=== PATIENT | female | born 1995 | race Caucasian/White ===

== ENCOUNTER 2017-06-29 21:22 | Emergency (ER) | payer BC ==
[~2017-06-29] VITALS: Ht 170.2 cm; Wt 78.0 kg
[~2017-06-29 21:22] MED LIST: ALBU1AER9 INH; BCPILLS PO; FLUO40CA8 PO; FLUT0.0529 NAE; IRON1CAP2 PO; LAMO25TA PO; LORA10CA2 PO; MELA1TAB3 PO; MISCCAP80 PO; MONT1TAB3 PO; OMEP-105 PO; PRED10TA PO; SYMIN8045 INH; TRAZ50TA35 PO
[2017-06-29 21:26] VITALS: TEMP 36.9; Ht 170.2 cm; Wt 78.0 kg
[2017-06-29] MEDS ORDERED: KETOROLAC TROMETHAMINE 30 MG/ML VIAL IV STA (22:04)
--- NOTE | 2017-06-29 22:16 | EMERGENCY ROOM VISIT NOTE ---
History Report prepared by Robinson: Silvia Yousif Under the Supervision of: Olga Lidia ParisO. First contact with patient: 21:48 Chief Complaint: PELVIC PAIN Stated Complaint: PAIN IN LOWER RIGHT ABDOMEN, NAUSEA History of Present Illness The patient is a 21 year old female who presents to the Emergency Room with complaints of worsening pelvic pain that started last night. The patient rates her pain a 6/10 in severity. The patient states that she also started experiencing nausea and diarrhea today. She reports that she had 3 episodes of diarrhea today. She notes that she has celiac's disease so diarrhea is not uncommon. The patient states that she has a history of ovarian cysts. She states that her current symptoms feel similar to the symptoms she experienced during her previous ovarian cysts. She notes that she stopped taking her control pills a week ago because she ran out. The patient states that she has had no change in activity or diet. She denies any fever, chills, or urine discharge. Source of History: patient Onset: last night Position: pelvis Symptom Intensity: moderate Quality: sharp Timing: worsening Associated Symptoms: + nausea, + diarrhea, No fevers, No chills, No urinary symptoms Review of Systems Pt denies headache, change in vision, fevers, chest pain, shortness of breath, nausea, vomiting, diarrhea, pain with urination, and melena. Family History Cancer Diabetes mellitus Hypertension Kidney disease Kidney stones Lung disease Seizures Social History Smoking Status: Never Smoker Alcohol Use: none Drug Use: none Marital Status: single Housing Status: lives with roommate Occupation Status: employed, [employer] student Current/Historical Medications Scheduled Budesonide/Formoterol Fumarate (Symbicort 160/4.5 Inhaler ), 2 PUFFS INH BID Ethinyl Estradiol/Norethindr (Microgestin 1.5MG/30MG), 1 TAB PO DAILY Ferrous Sulfate (Iron), 325 MG PO DAILY Fluoxetine Hcl (Prozac), 60 MG PO DAILY Fluticasone Propionate (Nasal) (Flonase Allergy Relief), 2 SPRAYS YASMIN DAILY Lamotrigine (Lamictal), 100 MG PO BID Loratadine (Claritin), 10 MG PO BID Melatonin (Melatonin Maximum Strengt), 10 MG PO HS Montelukast Sodium (Singulair), 10 MG PO DAILY Quetiapine Fumarate (Seroquel), 300 MG PO DAILY Scheduled PRN Albuterol Hfa (Ventolin Hfa), 2 PUFFS INH Q6H PRN for SOB/Wheezing Prednisone Tab (Prednisone), 10 MG PO UD PRN for emergency Trazodone Hcl (Trazodone), 50-150 MG PO HS PRN for Sleep Allergies Coded Allergies: Clarithromycin (Verified Allergy, Unknown, RASH, 06/30/17) Erythromycin (Verified Allergy, Unknown, RASH, 06/30/17) Sulfisoxazole (Verified Allergy, Unknown, RASH, 06/30/17) Uncoded Allergies: SEAFOOD (Allergy, Intermediate, SWELLING, 10/12/14) DAIRY PRODUCTS (Adverse Reaction, Intermediate, GI UPSET, 10/12/14) Physical Exam Vital Signs Date Time Temp Pulse Resp B/P (MAP) Pulse Ox O2 Delivery O2 Flow Rate FiO2 06/30/17 00:26 75 16 133/80 98 Room Air 06/29/17 21:26 36.9 85 20 148/79 96 Room Air Physical Exam GENERAL: alert, well appearing, well nourished, no distress, non-toxic EYE EXAM: normal conjunctiva, PERRL and EOM's grossly intact OROPHARYNX: no exudate, no erythema, lips, buccal mucosa, and tongue normal and mucous membranes are moist NECK: supple, no nuchal rigidity, no adenopathy, non-tender LUNGS: Clear to auscultation. Normal chest wall mechanics HEART: no murmurs, S1 normal and S2 normal ABDOMEN: abdomen soft, non-tender, normo-active bowel sounds, no masses, no rebound or guarding. Right lower quadrant pain. BACK: Back is symmetrical on inspection and there is no deformity, no midline tenderness, no CVA tenderness. SKIN: no rashes and no bruising UPPER EXTREMITIES: upper extremities are grossly normal. LOWER EXTREMITIES: No pitting edema. NEURO EXAM: Normal sensorium, cranial nerves II-XII [grossly] intact, normal speech, no [gross] weakness of arms, no [gross] weakness of legs. [No drift. Finger to nose intact. Gross sensation intact.] Medical Decision & Procedures ER Provider Diagnostic Interpretation: Primary findings only - see final report for complete test findings. US PELVIC/ENDOVAG: Assuming a negative test. The uterus is unremarkable. No torsion. Presumed collapsed follicle in the right ovary. Small amount of fluid in the pelvis. Radiologist: Jud Burns M.D. Study ready at 23:55 and initial results transmitted at 00:09. Laboratory Results 06/29/17 21:30 Red Blood Count 4.75, Mean Corpuscular Volume 83.6, Mean Corpuscular Hemoglobin 28.0, Mean Corpuscular Hemoglobin Concent 33.5, Mean Platelet Volume 9.8, Neutrophils (%) (Auto) 54.2, Lymphocytes (%) (Auto) 39.4, Monocytes (%) (Auto) 6.1, Eosinophils (%) (Auto) 0.0, Basophils (%) (Auto) 0.0, Neutrophils # (Auto) 3.58, Lymphocytes # (Auto) 2.60, Monocytes # (Auto) 0.40, Eosinophils # (Auto) 0.00, Basophils # (Auto) 0.00 06/29/17 21:30 Test 06/29/17 21:25 06/29/17 21:30 Urine Color YELLOW Urine Appearance CLEAR (CLEAR) Urine pH 8.0 (4.5-7.5) Urine Specific [place] 1.005 (1.000-1.030) Urine Protein NEG (NEG) Urine Glucose (UA) NEG (NEG) Urine Ketones NEG (NEG) Urine Occult Blood 2+ (NEG) Urine Nitrite NEG (NEG) Urine Bilirubin NEG (NEG) Urine Urobilinogen NEG (NEG) Urine Leukocyte Esterase NEG (NEG) Urine WBC (Auto) 1-5 /hpf (0-5) Urine RBC (Auto) 0-4 /hpf (0-4) Urine Hyaline Casts (Auto) 0 /lpf (0-5) Urine Epithelial Cells (Auto) 5-10 /lpf (0-5) Urine Bacteria (Auto) NEG (NEG) White Blood Count 6.60 K/uL (4.8-10.8) Red Blood Count 4.75 M/uL (4.2-5.4) Hemoglobin 13.3 g/dL (12.0-16.0) Hematocrit 39.7 % (37-47) Mean Corpuscular Volume 83.6 fL (80-100) Mean Corpuscular Hemoglobin 28.0 pg (25-34) Mean Corpuscular Hemoglobin Concent 33.5 g/dl (32-36) Platelet Count 198 K/uL (130-400) Mean Platelet Volume 9.8 fL (7.4-10.4) Neutrophils (%) (Auto) 54.2 % Lymphocytes (%) (Auto) 39.4 % Monocytes (%) (Auto) 6.1 % Eosinophils (%) (Auto) 0.0 % Basophils (%) (Auto) 0.0 % Neutrophils # (Auto) 3.58 K/uL (1.4-6.5) Lymphocytes # (Auto) 2.60 K/uL (1.2-3.4) Monocytes # (Auto) 0.40 K/uL (0.11-0.59) Eosinophils # (Auto) 0.00 K/uL (0-0.5) Basophils # (Auto) 0.00 K/uL (0-0.2) RDW Standard Deviation 39.1 fL (36.4-46.3) RDW Coefficient of Variation 13.1 % (11.5-14.5) Immature Granulocyte % (Auto) 0.3 % Immature Granulocyte # (Auto) 0.02 K/uL (0.00-0.02) Anion Gap 6.0 mmol/L (3-11) Est Creatinine Clear Calc Drug Dose 87.9 ml/min Estimated GFR () 84.0 Estimated GFR (Non- 72.5 BUN/Creatinine Ratio 5.8 (10-20) Calcium Level 8.9 mg/dl (8.5-10.1) Total Bilirubin 0.4 mg/dl (0.2-1) Aspartate Amino Transf (AST/SGOT) 33 U/L (15-37) Alanine Aminotransferase (ALT/SGPT) 52 U/L (12-78) Alkaline Phosphatase 65 U/L (45-117) Total Protein 6.9 gm/dl (6.4-8.2) Albumin 4.1 gm/dl (3.4-5.0) Globulin 2.8 gm/dl (2.5-4.0) Albumin/Globulin Ratio 1.5 (0.9-2) Human Chorionic Gonadotropin, Qual NEG (NEG) Laboratory results per my review. Medications Administered Medications (Trade) Dose Ordered Sig/Dasia Route Start Time Stop Time Status Last Admin Dose Admin Ketorolac Tromethamine (Toradol Inj) 30 mg NOW STAT IV 06/29/17 22:04 06/29/17 22:06 DC 06/29/17 22:16 30 MG ED Course 2148: The patient was evaluated in room C12. A complete history and physical exam was performed. 0033: Upon reevaluation, the patient is resting comfortably. I discussed the findings and the treatment plan with the patient. She expresses complete and understanding. 0045: Upon reevaluation, the patient is feeling better. I discussed the findings and the treatment plan with the patient. She verbalizes agreement and understanding. She is ready to be discharged home. Medical Decision Differential diagnosis: Etiologies such as appendicitis, diverticulitis, PUD, biliary pathology, UTI, pancreatitis, obstruction, mesenteric ischemia, aortic pathology, infections, inflammatory bowel disease, renal colic, as well as others were entertained. Pt well appearing here throughout. Discussed f/u with pcp and fixture designer. Discussed sx to watch/return for, she verbalized understanding was agreeable with plan. Patient with no fevers, I feel likely nausea earlier secondary to pain response. At this point I feel patient low risk for evolving appendicitis. No evidence of torsion. Patient not sexually actually no history of STDs, no vaginal discharge otherwise suggest STDs/PID. Doubt colitis , bowel obstruction, perforation, mesenteric adenitis, IBD. Patient with no other GI symptoms. Doubt bacteremia/sepsis. Doubt occult GI bleed. Patient with no urinary symptoms, slight hematuria noted on UA although possible contaminant. No other symptoms to suggest UTI or kidney infection. Medication Reconcilliation Current Medication List: was personally reviewed by me Blood Pressure Screening Patient's blood pressure: Normal blood pressure Impression Primary Impression: Abdominal pain Additional Impression: Hematuria Scribe Attestation The scribe's documentation has been prepared under my direction and personally reviewed by me in its entirety. I confirm that the note above accurately reflects all work, treatment, procedures, and medical decision making performed by me. Departure Information Dispostion Home / Self-Care Referrals No Doctor, Assigned (PCP) Patient Instructions [facility] Additional Instructions Please continue to monitor the pain for any changes. You may use Tylenol and ibuprofen. Please drink plenty of fluids. Please avoid any strenuous activity , heavy lifting, or sexual intercourse until you're feeling better. If you have any persistent or worsening pain, develop fevers, vomiting, diarrhea, change in your urine, vaginal discharge or bleeding, or any other new concerns, please return the emergency room. Problem Qualifiers Primary Impression: Abdominal pain Abdominal location: right lower quadrant Qualified Codes: R10.31 - Right lower quadrant pain Additional Impression: Hematuria Hematuria type: unspecified type Qualified Codes: R31.9 - Hematuria, unspecified
[2017-06-29 22:20] LABS: URINE APPEARANCE CLEAR (CLEAR); URINE BILIRUBIN NEG (NEG); URINE COLOR YELLOW; URINE NITRITE NEG (NEG); URINE SPECIFIC GRAVITY 1.005 (1.000-1.030); UROBILINOGEN NEG (NEG); ZZUR CULT IF INDIC CLEAN CATCH NO
[2017-06-29 22:23] LABS: MANUAL MICROSCOPIC REQUIRED? NO; REVIEW REQ? NO
[2017-06-29 22:36] LABS: COMPLETE YES; HEMATOCRIT 39.7 % (37-47); IG% 0.3 %; LYMPH % 39.4 %; MEAN CELL VOLUME 83.6 fL (80-100); MEAN CORPUSCULAR HGB CONC 33.5 g/dl (32-36); MEAN PLATELET VOLUME 9.8 fL (7.4-10.4); MONO % 6.1 %; NEUT % 54.2 %; PLATELET COUNT 198 K/uL (130-400); RED BLOOD COUNT 4.75 M/uL (4.2-5.4)
[2017-06-29 22:47] LABS: PREG INTERNAL NEGATIVE QC NEG CLEAR BACKGROUND; PREG INTERNAL POSITIVE QC POS CONTROL LINE
[2017-06-29 22:52] LABS: BUN/CREATININE RATIO 5.8 (10-20); CALCIUM 8.9 mg/dl (8.5-10.1); CREATININE 1.09 mg/dl (0.60-1.20); POTASSIUM 3.9 mmol/L (3.5-5.1)
[2017-06-29 22:53] LABS: ALB/GLOB RATIO 1.5 (0.9-2)
[2017-06-30 00:26] VITALS: BP 133/80; PULSE 75; O2SAT 98
[2017-06-30] MEDS ORDERED: SYMIN160 INH (00:34)
[2017-06-30] MEDS ORDERED: QUET1TAB37 PO (00:34)
[2017-06-30] MEDS ORDERED: FLUO20CA34 PO (00:34)
[2017-06-30] MEDS ORDERED: MELATAB2 PO (00:34)
[2017-06-30] MEDS ORDERED: LAMO100T16 PO (00:34)
[2017-06-30] MEDS ORDERED: NORE-24 PO (00:36)
[2017-06-30] MEDS ORDERED: FERR1TAB23 PO (00:36)
[2017-06-30] MEDS ORDERED: VNTHFA/IN INH (00:36)
[2017-06-30] MEDS ORDERED: FLUT0.15 NAE (00:36)
--- NOTE | 2017-06-30 06:54 | DIAGNOSTIC IMAGING REPORT ---
EXAMINATION: PELVIC ULTRASOUND (transabdominal and endovaginal scanning) CLINICAL HISTORY: Right lower quadrant abdominal pain COMPARISON STUDY: None FINDINGS: The uterus measured 6.6 x 2.6 x 4 cm. The endometrial stripe measured 6 mm. The right ovary measured 42 x 20 x 17 mm. There is homogeneity within the right ovary likely represents a collapsed follicle. The left ovary measured 5 x 16 x 13 mm.. There is no ultrasonographic evidence of ovarian torsion. It should be noted that ovarian torsion can be present with normal Doppler ultrasonographic findings. There is trace free fluid, likely physiologic. IMPRESSION: No significant abnormalities. Electronically signed by: Ventura Guevara M.D. 06/30/2017 6:53 AM Dictated Date/Time: 06/30/2017 6:51 AM
== END 2017-06-30 00:59 | disposition home or self-care (01) ==
LOC: C.EDB 21:23 → C.EDC 06-30 00:59
DX: R10.31 Right lower quadrant pain (principal); R31.9 Hematuria, unspecified; R19.7 Diarrhea, unspecified; Z83.3 Family history of diabetes mellitus; Z82.49 Family history of ischemic heart disease and other diseases of the circulatory system; Z84.1 Family history of disorders of kidney and ureter; Z82.0 Family history of epilepsy and other diseases of the nervous system

== ENCOUNTER 2017-07-06 14:37 | Emergency (ER) | payer BC ==
[~2017-07-06] VITALS: Ht 170.2 cm; Wt 78.4 kg
[~2017-07-06 14:37] MED LIST changes: -ALBU1AER9 INH; -BCPILLS PO; +FERR1TAB23 PO; +FLUO20CA34 PO; -FLUO40CA8 PO; -FLUT0.0529 NAE; +FLUT0.15 NAE; -IRON1CAP2 PO; +LAMO100T16 PO; -LAMO25TA PO; -MELA1TAB3 PO; +MELATAB2 PO; -MISCCAP80 PO; +NORE-24 PO; -OMEP-105 PO; +QUET1TAB37 PO; +SYMIN160 INH; -SYMIN8045 INH; +VNTHFA/IN INH
[2017-07-06 14:51] VITALS: TEMP 37.2; Ht 170.2 cm; Wt 78.4 kg
[2017-07-06 16:06] LABS: COMPLETE YES; HEMATOCRIT 39.7 % (37-47); LYMPH % 38.7 %; LYMPH ABS # 1.84 K/uL (1.2-3.4); MEAN CELL VOLUME 83.8 fL (80-100); MEAN CORPUSCULAR HEMOGLOBIN 27.8 pg (25-34); MEAN CORPUSCULAR HGB CONC 33.2 g/dl (32-36); MEAN PLATELET VOLUME 9.3 fL (7.4-10.4); MONO % 5.3 %; PLATELET COUNT 158 K/uL (130-400); RED BLOOD COUNT 4.74 M/uL (4.2-5.4); WHITE BLOOD COUNT 4.76 K/uL (4.8-10.8)
[2017-07-06 16:28] LABS: BUN/CREATININE RATIO 9.5 (10-20); CALCIUM 9.1 mg/dl (8.5-10.1); CREATININE 1.11 mg/dl (0.60-1.20); POTASSIUM 4.1 mmol/L (3.5-5.1)
[2017-07-06 16:32] LABS: URINE APPEARANCE CLEAR (CLEAR); URINE BILIRUBIN NEG (NEG); URINE COLOR YELLOW; URINE EPITHELIAL CELL AUTO >30 /lpf (0-5); URINE NITRITE NEG (NEG); URINE SPECIFIC GRAVITY 1.011 (1.000-1.030); UROBILINOGEN NEG (NEG)
[2017-07-06 16:39] LABS: ALB/GLOB RATIO 1.2 (0.9-2); THYROID STIMULATING HORMONE 1.29 uIu/ml (0.300-4.500)
[2017-07-06 16:43] LABS: MANUAL MICROSCOPIC REQUIRED? NO; REVIEW REQ? NO
--- NOTE | 2017-07-06 16:49 | DIAGNOSTIC IMAGING REPORT ---
ULTRASOUND OF THE PELVIS CLINICAL HISTORY: Right pelvic pain. COMPARISON STUDY: Pelvic ultrasound dated 06/29/2017. TECHNIQUE: Real-time, grayscale, and color flow sonography of the pelvis is performed both transabdominally and endovaginally. Images are reviewed in the transverse and longitudinal planes. FINDINGS: Uterus: The uterus is normal in size and echotexture, measuring 7.1 x 2.7 x 3.7 cm. Endometrium: The endometrium is normal in appearance, and the endometrial stripe is normal in thickness measuring up to 0.5 cm. Ovaries: The ovaries are normal in size and morphology. The right ovary measures 4.1 x 2.6 x 3.0 cm and the left ovary measures 3.0 x 2.5 x 2.5 cm. Numerous small follicles are seen bilaterally. Normal Doppler waveforms are shown within both ovaries. Pelvis: There is trace free fluid in the cul-de-sac. No concerning adnexal lesion is seen. IMPRESSION: 1. No acute sonographic abnormality is identified in the pelvis. 2. There is trace and likely physiologic free fluid in the cul-de-sac. Electronically signed by: Obie Miller M.D. 07/06/2017 4:48 PM Dictated Date/Time: 07/06/2017 4:44 PM
--- NOTE | 2017-07-06 17:45 | DIAGNOSTIC IMAGING REPORT ---
CT SCAN OF THE ABDOMEN AND PELVIS WITHOUT CONTRAST CLINICAL HISTORY: RIGHT FLANK PAIN, HEMATURIA COMPARISON STUDY: No previous studies for comparison. TECHNIQUE: CT scan of the abdomen and pelvis was performed from the lung bases to the proximal femurs. Images are reviewed in the axial, sagittal, and coronal planes. IV contrast was not administered for this examination. A dose lowering technique was utilized adhering to the principles of ALARA. CT DOSE: 912.24 mGy.cm FINDINGS: Lower chest: The heart is normal in size and configuration, without pericardial effusion. The lung bases and pleural spaces are clear. Liver: The unenhanced liver is normal in size, contour, and attenuation. There is no intrahepatic biliary ductal dilatation. Gallbladder: Unremarkable. Spleen: Normal in size and attenuation. Pancreas: Unremarkable. Adrenal glands: Unremarkable. Kidneys: No renal, ureteral, or bladder calculi are visualized. Bowel: There are no transition zones indicate bowel obstruction. There is mild fecal retention. There is no acute diverticulitis. There is a low-lying cecum. The appendix appears normal. Peritoneum: Is no free air. There is trace free pelvic fluid likely physiologic Vasculature: The abdominal aorta is normal in course and caliber. Adenopathy: None. Pelvic viscera: The bladder, and pelvic viscera are unremarkable. Skeletal structures: No destructive osseous lesions are seen. IMPRESSION: 1. No evidence of bowel obstruction. No evidence of free air 2. No renal, ureteral, or bladder calculi identified 3. Normal appendix. No evidence of acute diverticulitis 4. Mild fecal retention Electronically signed by: Ventura Guevara M.D. 07/06/2017 5:43 PM Dictated Date/Time: 07/06/2017 5:39 PM
--- NOTE | 2017-07-06 18:20 | EMERGENCY ROOM VISIT NOTE ---
History First contact with patient: 15:13 Chief Complaint: PELVIC PAIN Stated Complaint: RIGHT PELVIC PAIN, BACK PAIN History of Present Illness Patient is a 21-year-old white female who returns to the emergency department for ongoing right lower quadrant pain 1 week. Patient has a history of celiac disease, GERD, IBS, and ovarian cysts. She also has a history of dysmenorrhea, for which she had been on an oral contraceptive. She finished her last pack about 2-1/2 weeks ago, and is not scheduled to see her tissue recovery technician until she goes home over , therefore has not gone back on the oral contraceptive pill. Patient reports her last menstrual period was about 2 and half weeks ago. Patient has a remote history of ovarian cyst. She developed some right lower quadrant pain last Thursday, for which she was seen and evaluated here in the emergency department. Ultrasound showed a collapsing follicle on the right ovary. Patient states that the pain resolved on its own over the next couple of days, and she was pain-free until about 2 or 3 days ago. She again notes a "pulling pain" in the right lower quadrant that she rates a 4/10. She is also noticed some increased vaginal discharge, which she states is not foul-smelling. She tried taking ibuprofen through the weekend. She has also noted some right low back pain which she feels is musculoskeletal in nature as she has been sitting a lot studying. She reports no urinary symptoms, no changes in her bowel habits. She reports that she has been compliant with her normal dietary restrictions, and states this is not consistent with her celiac disease. She denies any bloating, nausea or vomiting. She called [facility] and they sent her to the emergency department for evaluation. She was last sexually active about 4 months ago. She reports that she and her boyfriend were in a monogamous relationship, and use condoms, and she is felt to be low risk for any sexually transmitted infections. Review of Systems Review of systems as per HPI. All other systems reviewed were negative. 10 systems reviewed. Past Medical/Surgical History Medical Problems: (1) Abdominal pain (2) Anxiety (3) Asthma (4) Bipolar disorder (5) Celiac disease (6) Chest pain (7) Depression (8) GERD (gastroesophageal reflux disease) (9) Headache (10) Hematuria (11) Irritable Bowel Syndrome (12) Radha (13) Ovarian cyst Electronic medical records are reviewed and summarized as above/below. See Problem List. Family History Cancer Diabetes mellitus Hypertension Kidney disease Kidney stones Lung disease Seizures Social History Smoking Status: Never Smoker Alcohol Use: none Drug Use: none Marital Status: single Housing Status: lives with roommate Occupation Status: employed, [employer] student Current/Historical Medications Scheduled Budesonide/Formoterol Fumarate (Symbicort 160/4.5 Inhaler ), 2 PUFFS INH BID Ethinyl Estradiol/Norethindr (Microgestin 1.5MG/30MG), 1 TAB PO DAILY Ferrous Sulfate (Iron), 325 MG PO DAILY Fluoxetine Hcl (Prozac), 60 MG PO DAILY Fluticasone Propionate (Nasal) (Flonase Allergy Relief), 2 SPRAYS YASMIN DAILY Lamotrigine (Lamictal), 100 MG PO BID Loratadine (Claritin), 10 MG PO BID Melatonin (Melatonin Maximum Strengt), 10 MG PO HS Montelukast Sodium (Singulair), 10 MG PO DAILY Quetiapine Fumarate (Seroquel), 300 MG PO DAILY Scheduled PRN Albuterol Hfa (Ventolin Hfa), 2 PUFFS INH Q6H PRN for SOB/Wheezing Prednisone Tab (Prednisone), 10 MG PO UD PRN for emergency Trazodone Hcl (Trazodone), 50-150 MG PO HS PRN for Sleep Physical Exam Vital Signs Date Time Temp Pulse Resp B/P (MAP) Pulse Ox O2 Delivery O2 Flow Rate FiO2 07/06/17 18:45 77 16 130/71 97 Room Air 07/06/17 16:52 80 18 122/77 98 Room Air 07/06/17 14:51 37.2 86 20 131/84 98 Room Air Physical Exam CONSTITUTIONAL: Patient is a well-appearing 21-year-old white female who is awake and alert and in no acute distress. EYES: Pupils equal, round, reactive to light and accommodation. EOMs intact without nystagmus. Sclera are anicteric. ENT: Tympanic membranes intact, with normal landmarks. External canals are clear. Oral and nasopharynx are clear. Mucous membranes are moist, no lesions , tongue and gums appear normal. NECK: No bruits auscultated. Supple without lymphadenopathy. No thyromegaly. No meningeal signs. Full active range of motion without discomfort. CARDIOVASCULAR: Regular rate and rhythm, with normal S1 and S2, no murmur or gallop or rub is heard. No carotid bruits auscultated. No JVD. Peripheral pulses easily palpable. RESPIRATORY: Breath sounds equal and clear to auscultation without wheezes, rales, or rhonchi heard. Full and equal chest expansion without accessory muscle use or retractions. ABDOMEN: Bowel sounds are present. Abdomen is soft, nondistended, abdomen is mildly tender to palpation throughout, in the right and left upper and lower quadrants, and in the epigastric region. There is no guarding, rebound or rigidity. Pelvic Exam: Genitalia are normal Vagina is clean Cervix is without lesions, no cervical motion tenderness noted. The uterus is small, nontender The adnexa no masses, nontender INTEGUMENTARY: No lesions or rash, normal skin turgor. She has several abdominal piercings, no signs of infection are noted. LYMPH: No lymphadenopathy. Medical Decision & Procedures ER Provider Diagnostic Interpretation: ULTRASOUND OF THE PELVIS CLINICAL HISTORY: Right pelvic pain. COMPARISON STUDY: Pelvic ultrasound dated 06/29/2017. TECHNIQUE: Real-time, grayscale, and color flow sonography of the pelvis is performed both transabdominally and endovaginally. Images are reviewed in the transverse and longitudinal planes. FINDINGS: Uterus: The uterus is normal in size and echotexture, measuring 7.1 x 2.7 x 3.7 cm. Endometrium: The endometrium is normal in appearance, and the endometrial stripe is normal in thickness measuring up to 0.5 cm. Ovaries: The ovaries are normal in size and morphology. The right ovary measures 4.1 x 2.6 x 3.0 cm and the left ovary measures 3.0 x 2.5 x 2.5 cm. Numerous small follicles are seen bilaterally. Normal Doppler waveforms are shown within both ovaries. Pelvis: There is trace free fluid in the cul-de-sac. No concerning adnexal lesion is seen. IMPRESSION: 1. No acute sonographic abnormality is identified in the pelvis. 2. There is trace and likely physiologic free fluid in the cul-de-sac. CT SCAN OF THE ABDOMEN AND PELVIS WITHOUT CONTRAST CLINICAL HISTORY: RIGHT FLANK PAIN, HEMATURIA COMPARISON STUDY: No previous studies for comparison. TECHNIQUE: CT scan of the abdomen and pelvis was performed from the lung bases to the proximal femurs. Images are reviewed in the axial, sagittal, and coronal planes. IV contrast was not administered for this examination. A dose lowering technique was utilized adhering to the principles of ALARA. CT DOSE: 912.24 mGy.cm FINDINGS: Lower chest: The heart is normal in size and configuration, without pericardial effusion. The lung bases and pleural spaces are clear. Liver: The unenhanced liver is normal in size, contour, and attenuation. There is no intrahepatic biliary ductal dilatation. Gallbladder: Unremarkable. Spleen: Normal in size and attenuation. Pancreas: Unremarkable. Adrenal glands: Unremarkable. Kidneys: No renal, ureteral, or bladder calculi are visualized. Bowel: There are no transition zones indicate bowel obstruction. There is mild fecal retention. There is no acute diverticulitis. There is a low-lying cecum. The appendix appears normal. Peritoneum: Is no free air. There is trace free pelvic fluid likely physiologic Vasculature: The abdominal aorta is normal in course and caliber. Adenopathy: None. Pelvic viscera: The bladder, and pelvic viscera are unremarkable. Skeletal structures: No destructive osseous lesions are seen. IMPRESSION: 1. No evidence of bowel obstruction. No evidence of free air 2. No renal, ureteral, or bladder calculi identified 3. Normal appendix. No evidence of acute diverticulitis 4. Mild fecal retention Laboratory Results 07/06/17 15:48 Red Blood Count 4.74, Mean Corpuscular Volume 83.8, Mean Corpuscular Hemoglobin 27.8, Mean Corpuscular Hemoglobin Concent 33.2, Mean Platelet Volume 9.3, Neutrophils (%) (Auto) 56.0, Lymphocytes (%) (Auto) 38.7, Monocytes (%) (Auto) 5.3, Eosinophils (%) (Auto) 0.0, Basophils (%) (Auto) 0.0, Neutrophils # (Auto) 2.67, Lymphocytes # (Auto) 1.84, Monocytes # (Auto) 0.25, Eosinophils # (Auto) 0.00, Basophils # (Auto) 0.00 07/06/17 15:48 Test 07/06/17 15:48 07/06/17 18:15 White Blood Count 4.76 K/uL (4.8-10.8) Red Blood Count 4.74 M/uL (4.2-5.4) Hemoglobin 13.2 g/dL (12.0-16.0) Hematocrit 39.7 % (37-47) Mean Corpuscular Volume 83.8 fL (80-100) Mean Corpuscular Hemoglobin 27.8 pg (25-34) Mean Corpuscular Hemoglobin Concent 33.2 g/dl (32-36) Platelet Count 158 K/uL (130-400) Mean Platelet Volume 9.3 fL (7.4-10.4) Neutrophils (%) (Auto) 56.0 % Lymphocytes (%) (Auto) 38.7 % Monocytes (%) (Auto) 5.3 % Eosinophils (%) (Auto) 0.0 % Basophils (%) (Auto) 0.0 % Neutrophils # (Auto) 2.67 K/uL (1.4-6.5) Lymphocytes # (Auto) 1.84 K/uL (1.2-3.4) Monocytes # (Auto) 0.25 K/uL (0.11-0.59) Eosinophils # (Auto) 0.00 K/uL (0-0.5) Basophils # (Auto) 0.00 K/uL (0-0.2) RDW Standard Deviation 40.2 fL (36.4-46.3) RDW Coefficient of Variation 13.3 % (11.5-14.5) Immature Granulocyte % (Auto) 0.0 % Immature Granulocyte # (Auto) 0.00 K/uL (0.00-0.02) Urine Color YELLOW Urine Appearance CLEAR (CLEAR) Urine pH 8.0 (4.5-7.5) Urine Specific [place] 1.011 (1.000-1.030) Urine Protein NEG (NEG) Urine Glucose (UA) NEG (NEG) Urine Ketones NEG (NEG) Urine Occult Blood TRACE (NEG) Urine Nitrite NEG (NEG) Urine Bilirubin NEG (NEG) Urine Urobilinogen NEG (NEG) Urine Leukocyte Esterase TRACE (NEG) Urine WBC (Auto) 1-5 /hpf (0-5) Urine RBC (Auto) 0-4 /hpf (0-4) Urine Hyaline Casts (Auto) 0 /lpf (0-5) Urine Epithelial Cells (Auto) >30 /lpf (0-5) Urine Bacteria (Auto) NEG (NEG) Urine Test NEG (NEG) Anion Gap 7.0 mmol/L (3-11) Est Creatinine Clear Calc Drug Dose 86.5 ml/min Estimated GFR () 82.2 Estimated GFR (Non- 70.9 BUN/Creatinine Ratio 9.5 (10-20) Calcium Level 9.1 mg/dl (8.5-10.1) Total Bilirubin 0.3 mg/dl (0.2-1) Aspartate Amino Transf (AST/SGOT) 31 U/L (15-37) Alanine Aminotransferase (ALT/SGPT) 47 U/L (12-78) Alkaline Phosphatase 55 U/L (45-117) Total Protein 7.0 gm/dl (6.4-8.2) Albumin 3.8 gm/dl (3.4-5.0) Globulin 3.2 gm/dl (2.5-4.0) Albumin/Globulin Ratio 1.2 (0.9-2) Lipase 223 U/L (73-393) Thyroid Stimulating Hormone (TSH) 1.290 uIu/ml (0.300-4.500) Date/Time Source Procedure Growth Status 07/06/17 18:15 Vaginal Swab Trichomonas Preparation - Final Complete ED Course The patient was seen and evaluated as above. Her old records were reviewed, specifically her ED visit from one week ago. IV lock was initiated and repeat laboratory studies were collected today including CBC with differential, CMP, lipase, TSH and urinalysis. Repeat pelvic ultrasound was performed. Laboratory studies noted a normal white count and H&H. Electrolytes, renal functions, liver functions, lipase and TSH are all within normal limits. Urine test was negative. Urine not concerning for infection, hematuria again noted. Pelvic exam was performed, or Trichomonas was negative. Gram stain did not demonstrate any clue cells. Culture and probe for Chlamydia and gonorrhea are pending. Repeat pelvic ultrasound today was unremarkable. Uterus was normal. Endometrial lining was of normal thickness. Ovaries are normal in size and morphology with numerous follicles bilaterally. Normal Doppler waveforms. The patient was reassessed. Further workup was discussed with her, as she has now begun to experience some right-sided back pain and has had a fissure area on urinalysis 2. CT scan of the abdomen and pelvis without contrast was ordered, which did not show any evidence for bowel obstruction, free air, renal ureteral or bladder calculi. The appendix was visualized and was normal. Mild fecal retention was noted. All laboratory and diagnostic imaging studies were reviewed with the patient. Conservative care measures were discussed. Differential diagnoses entertained included ovarian cyst, ovarian torsion, UTI, pyelonephritis, renal colic, appendicitis, PID, tubo-ovarian abscess, endometriosis, among others. The patient was discharged home in good condition. She was encouraged to follow-up with her tissue recovery technician as she has scheduled. She was welcome to return to the emergency department at any point if her symptoms are worsening. Medical Decision See Emergency Department course. Medication Reconcilliation Current Medication List: was personally reviewed by me Blood Pressure Screening Patient's blood pressure: Normal blood pressure Blood pressure disposition: Did not require urgent referral Impression Primary Impression: Right lower quadrant abdominal pain Departure Information Referrals No Doctor, Assigned (PCP) Patient Instructions My [facility] Go Try It On Additional Instructions Ibuprofen(Motrin, Advil) may be used for fever or pain. Use 600mg every six hours as needed. Take with food. Avoid using more than 2400mg in a 24 hour period. Do not use 2400mg per day for more than three consecutive days without physician direction. Prolonged inappropriate use can lead to stomach upset or ulcers. This is available over the counter and typically comes in 200mg tablets. (AND/OR) Acetaminophen(Tylenol) may be used for fever or pain. Use 1000mg every eight hours as needed. Avoid using more than 3000mg in a 24 hour period. This is available over the counter. Rest and drink plenty of fluids as tolerated. Slow sips of water or sports drinks are recommended instead of large amounts all at once. Continue current medications. Once your stomach is settled start with a clear liquid diet (jello, soup broth, etc.) and then advance as tolerated. You should avoid full, heavy meals for about 24 hrs from the time your symptoms resolved. Return to the ER immediately for worsening or persistent abdominal pain, vomiting, fevers, chest pains, difficulty breathing, black or bloody stools, worsening of your condition, or as needed. Follow up with your primary physician in 1-2 days for a recheck of your current condition. Follow-up with your tissue recovery technician as you have scheduled.
[2017-07-06 18:45] VITALS: BP 130/71; PULSE 77; O2SAT 97
[2017-07-09 01:47] LABS: CHLAMYDIA TRACH RNA*** NOT DETECTED (NOT DETECTED); GC (NEIS GONORRHOEAE)RNA** NOT DETECTED (NOT DETECTED)
--- NOTE | 2017-07-09 17:04 | Pharmacy Progress Note ---
ED Pharmacist Culture FollowUp Date of Service: Jul 09, 2017. Patient growing MSSA from genital culture not discharged on antibiotics. Discussed with Dr. Canseco and can call in an RX for cephalexin 500mg QID X 7 days once patient has been reached. Left voicemail for patient to call back.
== END 2017-07-06 19:00 | disposition home or self-care (01) ==
LOC: C.EDB 14:39 → C.EDA 19:00
DX: R10.31 Right lower quadrant pain (principal); M54.9 Dorsalgia, unspecified; F31.9 Bipolar disorder, unspecified; F41.9 Anxiety disorder, unspecified; K21.9 Gastro-esophageal reflux disease without esophagitis; K58.9 Irritable bowel syndrome, unspecified; J45.909 Unspecified asthma, uncomplicated; N83.209 Unspecified ovarian cyst, unspecified side; Z79.899 Other long term (current) drug therapy; Z80.9 Family history of malignant neoplasm, unspecified; Z83.3 Family history of diabetes mellitus; Z82.49 Family history of ischemic heart disease and other diseases of the circulatory system; Z84.1 Family history of disorders of kidney and ureter; Z82.0 Family history of epilepsy and other diseases of the nervous system

== ENCOUNTER 2017-11-22 22:45 | Emergency (ER) | payer BC ==
[~2017-11-22] VITALS: Ht 170.2 cm; Wt 77.2 kg
[~2017-11-22 22:45] MED LIST changes: +NORE-104 PO; -NORE-24 PO
[2017-11-22 22:50] VITALS: Ht 170.2 cm; Wt 77.2 kg
[2017-11-22] MEDS ORDERED: ALBUT/IPRATROP 3MG/0.5MG NEB 3 ML VIAL INH STA (23:04)
[2017-11-22] MEDS ORDERED: KETOROLAC TROMETHAMINE 30 MG/ML VIAL IV STA (23:04)
[2017-11-22] MEDS ORDERED: METHYLPREDNISOLONE 125 MG VIAL IV STA (23:04)
[2017-11-22] MEDS ORDERED: SODIUM CHLORIDE 0.9% 1000ML 1,000 ML IV STA (23:04)
[2017-11-22] MEDS ORDERED: ACETAMINOPHEN 500 MG TAB PO STA (23:04)
[2017-11-22] MEDS ORDERED: BENZONATATE 100MG CAP PO ONE (23:15)
[2017-11-22 23:33] LABS: HEMOGLOBIN 13.7 g/dL (12.0-16.0); LYMPH % 16.1 %; LYMPH ABS # 0.54 K/uL (1.2-3.4); MEAN CELL VOLUME 84.7 fL (80-100); MEAN CORPUSCULAR HGB CONC 34.3 g/dl (32-36); MEAN PLATELET VOLUME 10.1 fL (7.4-10.4); MONO % 10.7 %; MONO ABS # 0.36 K/uL (0.11-0.59); NEUT % 73.2 %; NEUT ABS # 2.46 K/uL (1.4-6.5); PLATELET COUNT 115 K/uL (130-400); RED CELL DISTRIBUTION WIDTH CV 13.2 % (11.5-14.5); RED CELL DISTRIBUTION WIDTH SD 40.9 fL (36.4-46.3); WHITE BLOOD COUNT 3.36 K/uL (4.8-10.8)
[2017-11-22] MEDS ORDERED: ETON1IMP2 (23:40)
[2017-11-22 23:50] LABS: INFLUENZA B ANTIGEN Neg for Influ B (NEG)
[2017-11-22 23:57] LABS: CALCIUM 8.5 mg/dl (8.5-10.1); CREATININE 1.14 mg/dl (0.60-1.20); POTASSIUM 3.6 mmol/L (3.5-5.1)
[2017-11-23 00:33] VITALS: BP 109/86
[2017-11-23] MEDS ORDERED: OSELTAMIVIR PHOSPHATE 75 MG CAP PO STA (00:37)
[2017-11-23] MEDS ORDERED: OSEL75CA12 PO (00:43)
[2017-11-23] MEDS ORDERED: PRED20TA2 PO (00:43)
[2017-11-23] MEDS ORDERED: BENZ100C18 PO (00:43)
[2017-11-23] MEDS ORDERED: BENZONATATE 100MG CAP PO ONE (00:45)
[2017-11-23] MEDS ORDERED: EMPTY 8 DRAM VIAL ONE (00:45)
[2017-11-23 00:54] VITALS: PULSE 98; TEMP 36.7; O2SAT 96
--- NOTE | 2017-11-23 07:05 | DIAGNOSTIC IMAGING REPORT ---
TWO VIEW CHEST CLINICAL HISTORY: Dyspnea. FINDINGS: PA and lateral chest radiographs are compared to study dated 10/04/2014. The cardiomediastinal silhouette is unremarkable. The lungs and pleural spaces are clear. There is no pneumothorax. The bony thorax appears intact. IMPRESSION: No active disease in the chest. Electronically signed by: Obie Miller M.D. 11/23/2017 7:03 AM Dictated Date/Time: 11/23/2017 7:03 AM
--- NOTE | 2017-11-24 02:54 | EMERGENCY ROOM VISIT NOTE ---
ED Visit Note First contact with patient: 22:54 Chief Complaint: Body aches, cough, lightheadedness and sinus drainage. History of Present Illness: Ms. Da Silva is a 21-year-old white female who ambulates into the ED with multiple upper respiratory tract symptoms complaints. Historically patient reports she has a history of asthma. Patient reports her current symptoms started approximately 2-3 days ago while she was at home. She reports her symptoms started with a nonproductive cough and she has gradually had increasing nasal congestion and drainage, bifrontal headache, joint pains, body aches, chills and fevers. Currently she reports her cough has been nonproductive. Deep inspiration exacerbates her cough. She has not identified any alleviating factors related to the cough. She has been using her albuterol inhaler without relief of her cough. Associated with her cough she reports she is having a tightness sensation in the anterior chest. This discomfort worsens with cough. Currently she describes her headache as a pressure sensation. She rates her discomfort 5/10. Her pain is nonradiating. Her pain worsens with palpation of the frontal sinuses and cough. She has not identified any alleviating factors related to her discomfort. This is not the worst headache of her life. Additionally associated with her symptoms she reports she has been having fevers , chills and diffuse joint and body aches and lightheadedness. She has been taken acetaminophen and [id number] pseudoephedrine for her symptoms without relief. She denies skin eruptions, skin color changes, visual changes, hearing changes, difficulty speaking, difficulty swallowing, hemoptysis, palpitations, orthopnea , dependent edema, previous clots, claudication, cramping, recent surgery/ inactivity; she does report that she recently drove to and from the [facility], tobacco and estrogen use, abdominal pain, nausea, vomiting, recent exposure to sick people. Review of Systems: As noted above in history of present illness. All body systems were reviewed and found to be negative as noted above. Past Medical History: As previously noted, unspecified skin disorder, bipolar disorder, bilateral myringotomies and unspecified shoulder surgery. Current Medications: Singulair, Claritin, trazodone, melatonin, Symbicort, Seroquel, Lamictal, Prozac, albuterol, Flonase, iron, etonogestrel. Allergies to Medications: Biaxin, erythromycin, Bactrim, seafood. Social History: Patient is currently university student; she feels safe in her home environment; she denies tobacco and admits to alcohol use Physical Examination: Vital Signs: Date Time Temp Pulse Resp B/P (MAP) Pulse Ox O2 Delivery O2 Flow Rate FiO2 11/23/17 00:54 36.7 98 18 96 11/23/17 00:33 118 20 109/86 97 Room Air 11/23/17 00:02 38.0 127 20 97 Room Air 11/22/17 23:55 127 20 131/77 98 Room Air 11/22/17 23:23 118 20 148/72 98 Room Air 11/22/17 23:17 123 11/22/17 22:50 39.1 128 18 149/88 95 Room Air GENERAL: 21-year-old female in mild to moderate distress due to symptoms, nontoxic-appearing, afebrile and hemodynamically stable. NEUROLOGICAL: Awake, alert and oriented to person, place and time. Answering questions appropriately and following commands. Normal gait. Good hand eye coordination. No focal motor or sensory deficits. SKIN: Warm, dry and pink. No soft tissue eruptions or trauma noted. HEENT: Atraumatic and normocephalic. Mild tenderness over the frontal maxillary sinuses without erythema or warmth. External ears are nontender. Auditory canals are pink and patent. Tympanic membranes are not erythematous or bulging. PERRLA. Sclera white and conjunctiva pink without drainage. No drainage from naris but with audible congestion. Oral cavity moist and pink. Uvula is midline and no abscesses were seen. Pharynx is nonerythematous or edematous. Postnasal drip was noted in the throat. Speech normal. No lymphadenopathy. Trachea midline. No jugular venous distention. BACK: No tenderness over the bony spine. No nuchal rigidity or meningismus. Full range of motion of the cervical spine. No CVA tenderness. THORAX: Lungs sounds are decreased in all [place] with slight leftward prominence and mild inspiratory wheezing diffusely through the lung f[place]. Equal bilaterally with symmetrical chest wall. No rales or rhonchi. No bony tenderness, crepitus, subcutaneous air or deformities noted throughout the thorax. No increased respiratory effort or rate. HEART: Regular rate and rhythm. No gallops, rubs or murmurs are appreciated. PMI was not displaced. No lifts, heaves or thrills. ABDOMEN: Flat, soft and nontender. Positive bowel sounds in all quadrants. No guarding, rigidity or organomegaly. EXTREMITIES: Moves all extremities well on command and with purpose. All distal neurovascular statuses are intact and equal bilaterally. No calf tenderness or cords. ED Course: Patient is assessed as noted above. Patient's medication list was reviewed. Laboratory Testing: Test 11/22/17 23:04 11/22/17 23:20 11/22/17 23:28 11/22/17 23:50 Range/Units Influenza Type A Antigen POS for Influ A NEG Influenza Type B Antigen Neg for Influ B NEG White Blood Count 3.36 4.8-10.8 K/uL Red Blood Count 4.72 4.2-5.4 M/uL Hemoglobin 13.7 12.0-16.0 g/dL Hematocrit 40.0 37-47 % Mean Corpuscular Volume 84.7 80-100 fL Mean Corpuscular Hemoglobin 29.0 25-34 pg Mean Corpuscular Hemoglobin Concent 34.3 32-36 g/dl Platelet Count 115 130-400 K/uL Mean Platelet Volume 10.1 7.4-10.4 fL Neutrophils (%) (Auto) 73.2 % Lymphocytes (%) (Auto) 16.1 % Monocytes (%) (Auto) 10.7 % Eosinophils (%) (Auto) 0.0 % Basophils (%) (Auto) 0.0 % Neutrophils # (Auto) 2.46 1.4-6.5 K/uL Lymphocytes # (Auto) 0.54 1.2-3.4 K/uL Monocytes # (Auto) 0.36 0.11-0.59 K/uL Eosinophils # (Auto) 0.00 0-0.5 K/uL Basophils # (Auto) 0.00 0-0.2 K/uL RDW Standard Deviation 40.9 36.4-46.3 fL RDW Coefficient of Variation 13.2 11.5-14.5 % Immature Granulocyte % (Auto) 0.0 % Immature Granulocyte # (Auto) 0.00 0.00-0.02 K/uL Sodium Level 139 136-145 mmol/L Potassium Level 3.6 3.5-5.1 mmol/L Chloride Level 105 98-107 mmol/L Carbon Dioxide Level 26 21-32 mmol/L Anion Gap 8.0 3-11 mmol/L Blood Urea Nitrogen 8 7-18 mg/dl Creatinine 1.14 0.60-1.20 mg/dl Est Creatinine Clear Calc Drug Dose 83.6 ml/min Estimated GFR () 79.6 Estimated GFR (Non- 68.7 BUN/Creatinine Ratio 6.9 10-20 Random Glucose 89 70-99 mg/dl Calcium Level 8.5 8.5-10.1 mg/dl Bedside Troponin I < 0.030 0-0.045 ng/ml Urine Color YELLOW Urine Appearance CLEAR CLEAR Urine pH >= 9.0 4.5-7.5 Urine Specific [place] 1.015 1.000-1.030 Urine Protein NEG NEG Urine Glucose (UA) NEG NEG Urine Ketones NEG NEG Urine Occult Blood NEG NEG Urine Nitrite NEG NEG Urine Bilirubin NEG NEG Urine Urobilinogen NEG NEG Urine Leukocyte Esterase TRACE NEG Urine WBC (Auto) 1-5 0-5 /hpf Urine RBC (Auto) 0-4 0-4 /hpf Urine Hyaline Casts (Auto) 0 0-5 /lpf Urine Epithelial Cells (Auto) 20-30 0-5 /lpf Urine Bacteria (Auto) NEG NEG Urine Test NEG NEG Chest X-Ray: Was read by myself and reviewed with Dr. Pelaez showing no acute infiltrates, effusions or pneumothorax. Normal heart silhouette and bony anatomy. EKG: Was read by myself and reviewed with Dr. Pelaez; shows sinus tachycardia with a ventricular rate of 117 bpm. Normal axis, intervals and complexes. No acute ST changes indicating ischemia, injury or infarction. This was compared to a previous EKG from September 2014 and no acute changes were noted except for the ventricular rate. Patient was hydrated with normal saline and she received 30 mg of Toradol IV, 1 g of acetaminophen IV for pain and fever, 200 mg of Tessalon Perles by mouth and albuterol/Atrovent nebulizer breathing treatment. Additionally when her influenza testing returned positive she was given 75 mg of Tamiflu. Patient was reassessed multiple times during her stay in the emergency department; after her albuterol/Atrovent nebulizer breathing treatment her lungs were reassessed and she had improved air movement in all f[place]er[place] and resolution of wheezing. Patient's case was reviewed with Dr. Pheasant; we agreed on diagnostic approach , treatment, disposition and plan. Patient was educated about today's findings and instructed on her treatment plan ; she verbalized understanding and agreement with this plan. Clinical Impression: Influenza A. Decision-Making: Initially my differential diagnosis I considered influenza, pneumonia, severe bronchitis, sinusitis, pulmonary embolism, myocarditis and other causes. Disposition: Patient discharged home in stable condition; prior to departure she was reassessed and subjectively reported she was feeling much better. She reported she had resolution of chest pain but was still having sinus pressure and rated her discomfort 2/10. She also reported that she feels like she was breathing much easier and did not feel short of breath. Plan: Patient was encouraged to alternate ibuprofen and acetaminophen every 3 hours as needed for pain or fevers. Patient was prescribed Tamiflu 75 mg 2 times a day for total of 5 days. Patient was prescribed 60 mg of prednisone for inflammation once a day for the next 5 days. Patient was prescribed Tessalon Perles 100 mg every 8 hours as needed for cough. Patient was encouraged to use 2 puffs of her albuterol inhaler with spacer every 6 hours for 5 days and as needed for shortness of breath/wheezing or severe coughing episode. Patient was encouraged to consider continued use of her pseudoephedrine for congestion. Patient was encouraged to follow-up at [facility] for recheck in 2-3 days. Patient was encouraged not to return to classes until she was afebrile for 24 hours after her last dose of ibuprofen or acetaminophen. Patient was encouraged return the ED for worsening symptoms, coughing up blood, uncontrolled fevers or any new/concerning symptoms.
== END 2017-11-23 00:55 | disposition home or self-care (01) ==
LOC: C.EDB 22:46 → C.EDA 11-23 00:55
DX: J10.1 Influenza due to other identified influenza virus with other respiratory manifestations (principal); J45.909 Unspecified asthma, uncomplicated; F31.9 Bipolar disorder, unspecified; Z79.3 Long term (current) use of hormonal contraceptives; Z88.1 Allergy status to other antibiotic agents; Z91.013 Allergy to seafood; Z72.89 Other problems related to lifestyle